=== PATIENT | male | born 1975 | race Caucasian/White ===

== ENCOUNTER 2023-02-23 19:07 | Emergency (ER) | payer OTHER, SELFPAY ==
[2023-02-23 19:18] VITALS: BP 97/73; PULSE 109; RESP 16; TEMP 37.9; O2SAT 99
[2023-02-23 19:24] VITALS: BP 97/73; PULSE 109; RESP 16; TEMP 37.9; O2SAT 99
--- NOTE | 2023-02-23 19:58 | ED.LOWEXIN ---
HPI - Extremity Injury (Lower) General Chief Complaint: Extremity Injury, Lower Stated Complaint: Left Foot Pain Time Seen by Provider: 02/23/23 20:06 Source: patient and RN notes reviewed Mode of arrival: ambulatory Limitations: no limitations History of Present Illness HPI Narrative: 47-year-old male with history of diabetes and diabetic neuropathy presents with concern for blister on the bottom of his left foot. Reports he has been at a convention, he has been wearing sandals. He noticed today some bleeding, looked down and had a blister on the bottom of his foot. MD complaint: foot injury Related Data Home Medications Medication Instructions Recorded Confirmed atorvastatin 40 mg tablet mg 02/23/23 fluoxetine 40 mg capsule mg 02/23/23 gabapentin 300 mg capsule mg 02/23/23 insulin glargine U-300 conc 300 unit subcut 02/23/23 unit/mL (1.5 mL) subcutaneous pen (Toujeo SoloStar U-300 Insulin) insulin lispro 100 unit/mL subcut 02/23/23 subcutaneous pen (Humalog KwikPen (U-100) Insulin) Allergies Allergy/AdvReac Type Severity Reaction Status Date / Time No Known Allergies Allergy Verified 02/23/23 19:23 Review of Systems Review of Systems: CONSTITUTIONAL: Denies malaise, chills, sweats, or fever. SKIN: Reports blister to the pedal aspect of the left foot MUSCULOSKELETAL: Denies muscle skeletal pain NEUROLOGIC: Denies numbness, weakness All systems reviewed & are unremarkable except as noted in HPI and below PMFSH Comments At time of signature, agree with nursing past medical, surgical, social and family history. There is no relevant family history pertinent to the presenting complaint Exam Narrative: GENERAL: Well-appearing, well-nourished, and in no acute distress. HEAD: Normocephalic, atraumatic. EYES: PERRLA, conjunctivae clear ENT: Mucous membranes moist NECK: Supple. No lymphadenopathy CHEST: Clear to auscultation. No respiratory distress. HEART: Regular rate and rhythm. SKIN: Warm, dry. Approximately 4cm by 7 cm blister with 3 side of the surface blister detached from the skin, 1 side of the blister still intact, beefy red tissue bed, no surrounding erythema, edema, induration, no purulent drainage NEURO: Alert and oriented x3. PSYCH: Normal mood and affect Course Course Emergency Course: Area clean skin secured over the blister,, nonstick dressing applied, anticipatory guidance given regarding wound care. Because patient is diabetic and has neuropathy I will prescribe prophylactic antibiotic Patient is aware of diagnosis, understands and agrees to treatment plan. Anticipatory guidance given. Patient agrees to follow-up as directed and is aware of reasons to seek care at the emergency department. Portions of this record may have been created with voice recognition software Level of Care: Express Care Visit Vital Signs Vital signs: Vital Signs Temperature 100.2 F H 02/23/23 19:18 Pulse Rate 109 H 02/23/23 19:18 Respiratory Rate 16 02/23/23 19:18 Blood Pressure 97/73 L 02/23/23 19:18 Pulse Oximetry 99 02/23/23 19:18 Oxygen Delivery Room Air 02/23/23 19:18 Temperature 100.2 F H 02/23/23 19:24 Pulse Rate 109 H 02/23/23 19:24 Respiratory Rate 16 02/23/23 19:24 Blood Pressure 97/73 L 02/23/23 19:24 Pulse Oximetry 99 02/23/23 19:24 Oxygen Delivery Room Air 02/23/23 19:24 Reviewed. Critical Care Time Critical Care Time Critical Care Time: No Discharge Plan Discharge Clinical Impression: Blister of foot without infection Patient Disposition: Home, Self-Care Condition: Stable Instructions: Antibiotic Form, Blister (ED) Additional Instructions: Wash your wound gently 2 times a day, do not soak. Keep a nonstick dressing on your foot, use padding on the foot to help with pain and to not disturb your skin while walking. Reapply dressing twice daily after washing. Take antibiotic as directed to help prevent infection.
[2023-02-23 20:20] VITALS: TEMP 37.7
== END 2023-02-23 20:24 | disposition home or self-care (01) ==
PROVIDERS: Emergency Provider Nurse Practitioner
DX: S90.822A Blister (nonthermal), left foot, initial encounter (principal); L08.9 Local infection of the skin and subcutaneous tissue, unspecified; X58.XXXA Exposure to other specified factors, initial encounter; E11.40 Type 2 diabetes mellitus with diabetic neuropathy, unspecified; Z79.4 Long term (current) use of insulin
CPT/HCPCS: 99213; G0463